=== PATIENT | male | born 1985 | race Caucasian/White ===

== ENCOUNTER 2021-02-19 20:23 | Emergency (ER) | payer OTHER ==
[~2021-02-19] VITALS: Ht 182.9 cm; Wt 86.2 kg
[2021-02-19] MEDS ORDERED: CASIRIVIMAB/IMDEVIMAB 10 ML VIAL IV ONE (21:00)
[2021-02-19] MEDS ORDERED: IMDEVIMAB IV ONE (21:15)
[2021-02-19] MEDS ORDERED: CASIRIVIMAB IV ONE (21:15)
[2021-02-19] MEDS ORDERED: SODIUM CHLORIDE IV ONE (21:15)
[2021-02-19 23:00] VITALS: BP 128/76
== END 2021-02-19 23:15 | disposition home or self-care (01) ==
LOC: ER 20:32
DX: R50.9 Fever, unspecified (principal); R05 Cough; U07.1 COVID-19
CPT/HCPCS: 99282

== ENCOUNTER 2022-08-10 12:38 | Inpatient (IN) | payer OTHER ==
[~2022-08-10] VITALS: Ht 182.9 cm; Wt 86.4 kg
[2022-08-10 15:00] VITALS: BP 141/93
[2022-08-10] MEDS ORDERED: ONDANSETRON HCL INJ 2MG/ML 2ML 2 MG/ML VIAL IV PRN (15:15)
[2022-08-10 15:48] LABS: BASOPHILS # (AUTO) 0.1 (0.0-0.1); BASOPHILS % 0.4 % (0.0-1.0); EOSINOPHILS # (AUTO) 0.1 (0.0-0.4); EOSINOPHILS % 0.4 % (0.0-6.0); HEMOGLOBIN 13.7 g/dL (14.0-18.0); LYMPHOCYTES # (AUTO) 1.9 (1.0-3.2); LYMPHOCYTES % 14.4 % (18.0-39.1); MEAN CORPUSCULAR HEMOGLOBIN 29.5 pg (28-32); MEAN CORPUSCULAR HGB CONC 31.1 g/dL (31-35); MEAN CORPUSCULAR VOLUME 94.6 fL (81-99); MONOCYTES # (AUTO) 0.7 (0.2-0.8); NEUTROPHILS # (AUTO) 10.6 (2.1-6.9); NEUTROPHILS % 79.4 % (38.7-80.0); PLATELET COUNT 216 x10e3/uL (140-360); RED BLOOD COUNT 4.65 x10e6/uL (4.3-5.7); RED CELL DISTRIBUTION WIDTH 12.4 % (11.7-14.4)
[2022-08-10 16:09] LABS: ALBUMIN 3.7 g/dL (3.5-5.0); ALBUMIN/GLOBULIN RATIO 1.2 (0.8-2.0); CALCIUM 8.4 mg/dL (8.4-10.2); CREATININE, SERUM 1.02 mg/dL (0.72-1.25)
[2022-08-10 16:14] VITALS: BP 141/93
[2022-08-10 16:17] VITALS: BP 141/93
[2022-08-10] MEDS: SODIUM CHLORIDE 0.9% 1000ML 1,000 ML IV SCH (16:27)
[2022-08-10] MEDS: ENOXAPARIN SODIUM INJ 100 MG/ML SYR SC SCH (16:27)
[2022-08-10 16:33] LABS: CREATINE KINASE MB 1.9 ng/mL (0-5.0)
[2022-08-10] MEDS ORDERED: TESTOSTERO100 MG/1 M (16:53)
[2022-08-10] MEDS ORDERED: ZYRTEC10 M3 (16:53)
[2022-08-10] MEDS ORDERED: LEXAPRO10 MG PO (16:53)
[2022-08-10] MEDS ORDERED: PANTOPRAZOLE SO40 MG PO (16:53)
[2022-08-10 20:00] VITALS: BP 150/98
[2022-08-10 20:30] VITALS: BP 150/98
[2022-08-10] MEDS ORDERED: POLYETHYLENE GLYCOL 3350 17 GM PACK PO PRN (21:30)
[2022-08-10] MEDS ORDERED: TEMAZEPAM 7.5 MG CAP PO PRN (21:30)
[2022-08-10] MEDS ORDERED: ACETAMINOPHEN 325 MG TAB PO PRN (21:30)
[2022-08-10] MEDS ORDERED: METOPROLOL TARTRATE INJ 1 MG/ML VIAL IV PRN (21:30)
[2022-08-11] VITALS (8 sets, daily range): BP systolic 111–141; BP diastolic 56–94
[2022-08-11] MEDS: SODIUM CHLORIDE 0.9% 1000ML 1,000 ML IV SCH (02:38)
[2022-08-11] MEDS: ENOXAPARIN SODIUM INJ 100 MG/ML SYR SC SCH ×2 (02:38→16:37)
[2022-08-11 03:54] LABS: CREATINE KINASE MB 1.5 ng/mL (0-5.0)
[2022-08-11 05:32] LABS: BASOPHILS # (AUTO) 0.1 (0.0-0.1); BASOPHILS % 0.6 % (0.0-1.0); EOSINOPHILS # (AUTO) 0.4 (0.0-0.4); EOSINOPHILS % 3.9 % (0.0-6.0); HEMATOCRIT 40.6 % (38.2-49.6); HEMOGLOBIN 13.4 g/dL (14.0-18.0); LYMPHOCYTES # (AUTO) 4.1 (1.0-3.2); LYMPHOCYTES % 37.6 % (18.0-39.1); MEAN CORPUSCULAR HEMOGLOBIN 29.2 pg (28-32); MEAN CORPUSCULAR VOLUME 88.5 fL (81-99); MONOCYTES # (AUTO) 0.7 (0.2-0.8); MONOCYTES % 6.4 % (4.4-11.3); NEUTROPHILS # (AUTO) 5.5 (2.1-6.9); NEUTROPHILS % 51.1 % (38.7-80.0); PLATELET COUNT 197 x10e3/uL (140-360); RED BLOOD COUNT 4.59 x10e6/uL (4.3-5.7); RED CELL DISTRIBUTION WIDTH 12.5 % (11.7-14.4)
[2022-08-11 06:10] LABS: ALBUMIN 3.3 g/dL (3.5-5.0); ALBUMIN/GLOBULIN RATIO 1.2 (0.8-2.0); ANION GAP 10.6 mmol/L (8-16); CALCIUM 8.1 mg/dL (8.4-10.2); CREATININE, SERUM 0.94 mg/dL (0.72-1.25); POTASSIUM 3.6 mmol/L (3.5-5.1)
[2022-08-11 06:11] LABS: CHOL/HDL RATIO 4.2 (3.9-4.7)
[2022-08-11 06:12] LABS: MAGNESIUM 1.9 MG/DL (1.3-2.1)
[2022-08-11 06:32] LABS: THYROID STIMULATING HORMONE 0.47 uIU/mL (0.350-4.940)
[2022-08-11] MEDS: DOCUSATE SODIUM 100 MG CAP PO SCH ×2 (09:37→17:00)
[2022-08-11] MEDS: PANTOPRAZOLE SOD 40 MG TABEC PO SCH (09:37)
[2022-08-11 10:09] LABS: CREATINE KINASE MB 1.3 ng/mL (0-5.0)
[2022-08-11] MEDS ORDERED: IOPAMIDOL 370 MG/ML 100 ML INFUS..BTL INJ ONE (11:15)
[2022-08-11] MEDS ORDERED: ONDANSETRON HCL 4 MG ORAL DISINTEGRATING TAB PO PRN (14:00)
[2022-08-11] MEDS ORDERED: TEMAZEPAM 15 MG CAP PO PRN (14:00)
[2022-08-12] VITALS: BP 101/65
[2022-08-12 04:00] VITALS: BP 104/67
[2022-08-12] MEDS: ENOXAPARIN SODIUM INJ 100 MG/ML SYR SC SCH (04:30)
[2022-08-12 07:30] VITALS: BP 104/67
[2022-08-12] MEDS: PANTOPRAZOLE SOD 40 MG TABEC PO SCH (07:30)
[2022-08-12] MEDS: DOCUSATE SODIUM 100 MG CAP PO SCH (07:35)
[2022-08-12 08:40] VITALS: BP 97/68
[2022-08-12] MEDS ORDERED: LIPITOR20 MG PO (11:04)
[2022-08-12] MEDS ORDERED: ATORVASTATIN 20 MG TAB PO SCH (21:00)
== END 2022-08-12 14:02 | disposition home or self-care (01) | DRG 918 ==
LOC: INTOOBSV 12:38 → MED/SURG2 12:38 → EDBD 12:38 → OBSVTOIN 08-12 11:55
PROVIDERS: ADMIT Internal Medicine; ATTEND Internal Medicine
DX: T62.0X1A Toxic effect of ingested mushrooms, accidental (unintentional), initial encounter (principal); J98.11 Atelectasis; R07.89 Other chest pain; E78.5 Hyperlipidemia, unspecified; Z91.011 Allergy to milk products; Z20.822 Contact with and (suspected) exposure to COVID-19
CPT/HCPCS: 36415; 71260; 80053; 80061; 82550; 82553; 83036; 83735; 84100; 84443; 84484; 85025; 85379; 93005; 93017; 93306; 93880; 94799; G0378; J1650; J7030; Q9967

== ENCOUNTER → 2025-02-17 | Day surgery (SDC) | payer OTHER ==
[~2025-02-17] MED LIST: FENTANYL CITRATE/PF 100MCG/2 ML INJ ONE; LACTATED RINGER'S 1,000 ML ONE; LEXAPRO10 MG PO; LIDOCAINE HCL 2% LOCAL INJ 5 ML SDV VIAL INJ ONE; LIPITOR20 MG PO; MIDAZOLAM HCL 2 MG/2 ML VIAL ONE; ONDANSETRON HCL INJ 2MG/ML 2ML 2 MG/ML VIAL ONE; PANTOPRAZOLE SO40 MG PO; PROPOFOL IV EMULSION 10 MG/ML 20 ML VIAL ONE; TESTOSTERO100 MG/1 M; VIIBRYD20 MG PO; VYVANSE50 MG PO; ZYRTEC10 M3
[2025-02-17 07:58] VITALS: TEMP 98
[2025-02-17 08:30] VITALS: BP 120/85; PULSE 74; RESP 16; O2SAT 99
== END | disposition home or self-care (01) ==
LOC: ENDO 05:44
PROVIDERS: ATTEND Internal Medicine Gastroenterology
DX: K22.2 Esophageal obstruction (principal); K20.0 Eosinophilic esophagitis; K29.70 Gastritis, unspecified, without bleeding; K44.9 Diaphragmatic hernia without obstruction or gangrene; K31.7 Polyp of stomach and duodenum; F32.A Depression, unspecified; F98.8 Other specified behavioral and emotional disorders with onset usually occurring in childhood and adolescence; Z79.899 Other long term (current) drug therapy
CPT/HCPCS: 43239; 43251; 43450; J2003; J2250; J2405; J2470; J2704; J3010; J7121